=== PATIENT | female | born 1995 | race Caucasian/White ===

== ENCOUNTER 2018-03-27 16:24 | Emergency (ER) | payer MEDICAID ==
[~2018-03-27] VITALS: Ht 162.6 cm; Wt 57.6 kg
--- NOTE | 2018-03-27 16:30 | NUR ---
Patient to ER bed 08 to gown for evaluation. Side rails up. Report given to Ivanna.
--- NOTE | 2018-03-27 16:30 | NUR ---
ER JAKI Edwards, at bedside examining patient.
--- NOTE | 2018-03-27 16:30 | NUR ---
patient is AOx4 arriving from home with boyfriend at bedside. patient stated she has had a sore throat for the past 3 days and has had vaginal bleeding since x 6 months ago. patient states "it feels like I've been on my period for 6 months." patient states she visited her OBGYN a few months ago but the dates are vague. patient has two young children at home with boyfriend. no other complaint or injury at this time.
[2018-03-27 16:32] VITALS: BP_SYST 144
[2018-03-27] MEDS ORDERED: cefTRIAXone 1 GM VIAL IM ONE (17:15)
[2018-03-27 17:21] LABS: POTASSIUM 3.6 mmol/L (3.5-5.1)
[2018-03-27 17:22] LABS: CREATININE 0.8 mg/dL (0.55-1.30)
[2018-03-27 17:30] LABS: HEMATOCRIT 39.4 % (36-48); HEMOGLOBIN 13.2 g/dL (12.0-16.0); MEAN CORPUSCULAR HEMOGLOBIN 30 pg (27-31); MEAN CORPUSCULAR HGB CONC 34 % (32-36); MEAN CORPUSCULAR VOLUME 88 fL (79.0-98.0); PLATELET COUNT (AUTO) 269 K/uL (130-430); RED BLOOD CELL COUNT(AUTO) 4.46 MIL/uL (4.2-6.2); RED CELL DISTRIBUTION WIDTH 13.1 % (9.0-15.0); WHITE BLOOD COUNT (AUTO) 5.6 K/uL (4.8-10.8)
[2018-03-27 17:31] LABS: BASOPHILS % (AUTO) 0.3 % (0.0-2.0); EOSINOPHILS # (AUTO) 0.1 K/uL (0.0-0.4); EOSINOPHILS % (AUTO) 0.9 % (0.0-4.0); LYMPHOCYTES # (AUTO) 0.9 K/uL (1.0-5.5); LYMPHOCYTES % (AUTO) 15.7 % (20.5-51.5); MONOCYTES # (AUTO) 0.7 K/uL (0.0-1.0); MONOCYTES % (AUTO) 13.3 % (1.7-9.3); NEUTROPHILS # (AUTO) 3.9 K/uL (1.8-7.7); NEUTROPHILS % (AUTO) 69.8 % (40.0-70.0)
--- NOTE | 2018-03-27 17:53 | NUR ---
patient sent to ultrasound.
--- NOTE | 2018-03-27 18:20 | NUR ---
returned from ultrasound in stable condition.
[2018-03-27 18:49] VITALS: BP_SYST 122
--- NOTE | 2018-03-27 18:49 | NUR ---
Patient given written and verbal discharge instructions and verbalizes understanding. ER MD discussed with patient the results and treatment provided. Patient in stable condition. ID arm band removed. Rx of Cefdinir, Acetaminophen given. Patient educated on pain management and to follow up with PMD. Pain Scale 0/10. Opportunity for questions provided and answered. Medication side effect fact sheet provided.
== END 2018-03-27 17:49 | disposition home or self-care (01) ==
LOC: SED 16:24
DX: J02.9 Acute pharyngitis, unspecified (principal); N93.8 Other specified abnormal uterine and vaginal bleeding; J45.909 Unspecified asthma, uncomplicated; Z88.0 Allergy status to penicillin; Z88.1 Allergy status to other antibiotic agents; Z88.2 Allergy status to sulfonamides
CPT/HCPCS: 36415; 76830; 76857; 80048; 81025; 85025; 86403; 87081; 87210; 96372; 99284; J0696

== ENCOUNTER 2019-01-30 07:19 | Emergency (ER) | payer MEDICAID ==
[~2019-01-30] VITALS: Ht 162.6 cm; Wt 62.1 kg
[2019-01-30 07:46] VITALS: BP_SYST 114
--- NOTE | 2019-01-30 08:10 | NUR ---
Patient arrived in the ED accompanied by her sister. C/O of chest pain with SOB, non-productive cough and congestion since last night: Pain severity 7/10 - Taking Mucinex. Patient is alert and oriented x 4, respirations even and shallow, denied any respiratory distress at this time. Patient is sitting up in bed, speaking in full sentences. Instructed to notify ED staff if symptoms worsen while waiting to be seen by a provider. Patient verbalized understanding. Sister at bedside.
--- NOTE | 2019-01-30 08:13 | NUR ---
Patient to ER bed 08 to gown for evaluation. Side rails up.
--- NOTE | 2019-01-30 08:15 | NUR ---
ER Dr. Atkinson at bedside examining patient.
[2019-01-30] MEDS ORDERED: ALBUTEROL SULFATE 0.083% 2.5 MG/3 ML VIAL.NEB INH ONE (08:29)
[2019-01-30] MEDS ORDERED: IPRATROPIUM BROM 0.5 MG/2.5 ML VIAL.NEB (ATROVENT) INH ONE (08:29)
[2019-01-30] MEDS ORDERED: IPRATROPIUM BROM 0.5 MG/2.5 ML VIAL.NEB (ATROVENT) IH ONE ×2 (08:30→09:00)
[2019-01-30] MEDS ORDERED: PREDNISONE 20 MG TABLET PO ONE (08:30)
[2019-01-30] MEDS ORDERED: ALBUTEROL SULFATE 0.083% 2.5 MG/3 ML VIAL.NEB IH ONE ×2 (08:30→09:00)
--- NOTE | 2019-01-30 08:40 | NUR ---
RT at bedside administering nebulizer treatment. Patient tolerated the medication well. Some relief per patient.
[2019-01-30] MEDS ORDERED: KETOROLAC TROMETHAMINE 60 MG/2 ML VIAL IM ONE (08:45)
--- NOTE | 2019-01-30 08:50 | NUR ---
Administered Toradol 60mg IM to right ventrogluteal as ordered by Dr. Atkinson and Prednisone 60mg PO. Patient tolerated the medications well.
[2019-01-30 09:42] VITALS: BP_SYST 114
--- NOTE | 2019-01-30 09:43 | NUR ---
Patient given written and verbal discharge instructions and verbalizes understanding. ER MD discussed with patient the results and treatment provided. Patient in stable condition. ID arm band removed. Rx of Motrin, Albuterol and Prednisone given. Patient educated on pain management and to follow up with PMD. Pain Scale 0/10. Opportunity for questions provided and answered. Medication side effect fact sheet provided.
--- NOTE | 2019-01-30 09:51 | NUR ---
Urine test done, negative. Notified
== END 2019-01-30 09:42 | disposition home or self-care (01) ==
LOC: SED 07:19
DX: J45.901 Unspecified asthma with (acute) exacerbation (principal); R07.89 Other chest pain; Z88.0 Allergy status to penicillin; Z88.2 Allergy status to sulfonamides; Z88.1 Allergy status to other antibiotic agents
CPT/HCPCS: 81025; 94640; 96372; 99284; J1885; J7512; J7613